=== PATIENT | female | born 1990 | race Two or more races ===

== ENCOUNTER 2021-07-26 11:40 | Emergency (ER) | payer OTHER ==
[~2021-07-26] VITALS: Ht 170.2 cm; Wt 113.4 kg
[2021-07-26 11:54] VITALS: BP 126/86
--- NOTE | 2021-07-26 11:54 | NUR ---
PT BIB SELF C/O COUGH AND CONGESTION. REQUESTING COVID TEST. PT A/OX4. TOLERATING R/A WELL WITH NO SOB
--- NOTE | 2021-07-26 12:15 | NUR ---
Patient discharged to home in stable condition. Written and verbal after care instructions given. Patient verbalizes understanding of instruction. PT ambulatory with a steady gait
--- NOTE | 2021-07-26 12:15 | NUR ---
COVID ANTIGEN SWAB COLLECTED AND SENT TO LAB
--- NOTE | 2021-07-26 13:15 | NUR ---
INFORMED OF COVID+ RESULTS
== END 2021-07-26 12:17 | disposition home or self-care (01) ==
LOC: ER 11:47
DX: U07.1 COVID-19 (principal)
CPT/HCPCS: C9803